=== PATIENT | female | born 1935 | race Caucasian/White ===

== ENCOUNTER → 2021-08-03 13:59 | Outpatient (CLI) | payer MEDICARE, SELFPAY ==
--- NOTE | 2021-08-03 14:10 | ECHOD_ITS ---
Reason For Study: MURMUR Procedure This was a 2D Doppler, Color Flow transthoracic echocardiogram. The exam was of adequate technical quality. Exam performed in department. Left Ventricle Normal LV size. Left ventricular systolic function is normal. The estimated ejection fraction is 65 %. There is evidence of diastolic dysfunction. No regional wall motion abnormalities noted. Right Ventricle Normal RV size. Normal systolic function. Atria The left atrium is mildly enlarged. Normal right atrium. No doppler evidence for ASD. Mitral Valve There is moderate mitral annular calcification. Bileaflet diffuse mitral valve thickening. The mitral papillary muscle appears thickened and/or calcified. Mild-Moderate (1-2+) mitral valve insufficiency. Tricuspid Valve Normal tricuspid valve. Trivial tricuspid valve insufficiency. Right ventricular systolic pressure estimated to be 30 mmHg. Aortic Valve Trisinus/trileaflet aortic valve. Normal aortic valve. Trivial aortic valve insufficiency. Pulmonic Valve The pulmonic valve is not well visualized. Mild (1+) pulmonic valve insufficiency. Great Vessels Normal sized aortic root. Calcified aortic root. Pericardium/Pleural No pericardial effusion. MMode/2D Measurements & Calculations LVIDd: 4.3 cm IVSd: 0.89 cm Ao root diam: 3.4 cm LVIDs: 2.9 cm LVPWd: 0.95 cm RVDd: 2.8 cm FS: 31.9 % LAV(MOD-bp): 56.3 ml LA A4 area: 17.3 cm2 LA dimension(2D): 2.8 cm LAV(MOD-bp) Indexed: 39.9 ml/m2 LAV(MOD-sp2): 50.7 ml LAV(MOD-sp4): 50.7 ml RA A4 area: 9.2 cm2 Time Measurements MV dec time: 0.20 sec Doppler Measurements & Calculations MV E max lucas: 73.7 cm/sec Lat Peak E' Lucas: 6.1 cm/sec Med Peak E' Lucas: 5.0 cm/sec MV A max lucas: 81.3 cm/sec E/E' lat: 12.1 E/E' med: 14.6 MV E/A: 0.91 Ao V2 max: 164.8 cm/sec LV V1 max: 78.4 cm/sec PA V2 max: 73.1 cm/sec Ao max P.9 mmHg LV V1 max P.5 mmHg TR max lucas: 260.8 cm/sec TR max P.2 mmHg ECHO/Echo Complete Interpretation Summary Left ventricular systolic function is normal. The estimated ejection fraction is 65 %. The left atrium is mildly enlarged. There is moderate mitral annular calcification. Bileaflet diffuse mitral valve thickening. The mitral papillary muscle appears thickened and/or calcified. Mild-Moderate (1-2+) mitral valve insufficiency. Trivial tricuspid valve insufficiency. Trivial aortic valve insufficiency. Mild (1+) pulmonic valve insufficiency. Calcified aortic root. Right ventricular systolic pressure estimated to be 30 mmHg. There is evidence of diastolic dysfunction. Ordering Physician: Seven Robledo Referring Physician: Betsey Somers Performed By: Marion Joseph, PHAM, RVT
== END ==
PROVIDERS: PCP Internal Medicine Infectious Disease; Referring Provider Internal Medicine Cardiovascular Disease; Visit Provider Internal Medicine Cardiovascular Disease
DX: I25.10 Atherosclerotic heart disease of native coronary artery without angina pectoris (principal); R01.1 Cardiac murmur, unspecified; I10 Essential (primary) hypertension; E78.00 Pure hypercholesterolemia, unspecified
CPT/HCPCS: 93306